=== PATIENT | male | born 1930 | race Caucasian/White ===

== ENCOUNTER 2017-03-27 10:00 | Inpatient (IN) | payer MEDICARE, BC ==
[~2017-03-27] VITALS: Ht 170.2 cm; Wt 94.8 kg
[2017-03-27] MEDS ORDERED: METO5TAB7 PO (10:19)
[2017-03-27] MEDS ORDERED: CA/D1TAB7 PO (10:19)
[2017-03-27] MEDS ORDERED: AMLO10TA4 PO (10:19)
[2017-03-27] MEDS ORDERED: METO25TA6 PO (10:19)
[2017-03-27] MEDS ORDERED: RIVA20TA PO (10:19)
[2017-03-27] MEDS ORDERED: FLUT1DIS28 IH (10:19)
[2017-03-27] MEDS ORDERED: FURO-152 PO (10:19)
[2017-03-27] MEDS ORDERED: LOSA50TA3 PO (10:19)
[2017-03-27] MEDS ORDERED: MULT-1045 PO (10:20)
[2017-03-27] MEDS ORDERED: SENN8.6T22 PO (10:20)
[2017-03-27] MEDS ORDERED: SODI1TAB3 PO (10:20)
[2017-03-27] MEDS ORDERED: [UNRECOGNIZED DRUG - REMARK] (10:20)
[2017-03-27] MEDS ORDERED: LACT1TAB13 PO (10:20)
[2017-03-27] MEDS ORDERED: LOSA50TA21 PO (10:20)
--- NOTE | 2017-03-27 10:35 | NUR ---
dr duffy at the bedside for eval and exam.
[2017-03-27] MEDS ORDERED: MORPHINE SULFATE 2 MG/1 ML DISP.SYRIN IV ONE (10:45)
[2017-03-27] MEDS ORDERED: ONDANSETRON 4 MG/2 ML VIAL IV ONE (10:45)
[2017-03-27 10:53] LABS: BASOPHILS % (AUTO) 0.5 % (0.0-2.0); EOSINOPHILS # (AUTO) 0.1 K/uL (0.0-0.7); EOSINOPHILS % (AUTO) 1.5 % (0.0-7.0); HEMATOCRIT 43.8 % (40-50); HEMOGLOBIN 14.7 G/DL (14.0-18.0); LYMPHOCYTES # (AUTO) 1.5 K/uL (20.0-40.0); LYMPHOCYTES % (AUTO) 15.2 % (20.5-51.5); MEAN CORPUSCULAR HEMOGLOBIN 30.4 UUG (27.0-31.0); MEAN CORPUSCULAR HGB CONC 34 g/dL (32.0-37.0); MEAN CORPUSCULAR VOLUME 90.4 FL (82.0-92.0); MONOCYTES # (AUTO) 0.6 K/uL (2.0-10.0); MONOCYTES % (AUTO) 6.2 % (0.0-11.0); NEUTROPHILS # (AUTO) 7.4 K/uL (1.8-8.9); NEUTROPHILS % (AUTO) 76.6 % (38.5-71.5); PLATELET COUNT (AUTO) 351 K/UL (150-450); RED BLOOD CELL COUNT(AUTO) 4.84 MIL/UL (4.7-6.1); RED CELL DISTRIBUTION WIDTH 13.9 % (11.5-14.5); WHITE BLOOD COUNT (AUTO) 9.6 K/UL (4.0-11.2)
[2017-03-27] MEDS ORDERED: ONDANSETRON 4 MG/2 ML VIAL ONE (10:57)
[2017-03-27] MEDS ORDERED: MORPHINE SULFATE 2 MG/1 ML DISP.SYRIN ONE (10:57)
[2017-03-27 11:02] LABS: CALCIUM 8.9 mg/dL (8.5-10.1); CREATININE 1.2 mg/dL (0.6-1.3); POTASSIUM 4.4 mmol/L (3.5-5.1)
[2017-03-27 11:08] LABS: ALBUMIN 3.7 g/dL (3.4-5.0); BILIRUBIN,DIRECT 0.2 mg/dL (0.0-0.2); BILIRUBIN,TOTAL 0.7 mg/dL (0.2-1.0); TOTAL PROTEIN, SERUM 7.3 g/dL (6.4-8.2)
--- NOTE | 2017-03-27 11:12 | NUR ---
PER MD ORDER RECCHECK BP ON RT ARM, 164/89.
--- NOTE | 2017-03-27 11:12 | NUR ---
PT SIGNED CONSENT FOR CTA, PLACED IN THE CHART.
[2017-03-27] MEDS ORDERED: IOHEXOL 350 100 ML INFUS..BTL ONE (11:29)
[2017-03-27] MEDS ORDERED: IV NORMAL SALINE 250 ML IV ONE (11:29)
[2017-03-27] MEDS ORDERED: MORPHINE SULFATE 4 MG/1 ML DISP.SYRIN IV ONE (11:30)
[2017-03-27] MEDS ORDERED: MORPHINE SULFATE 4 MG/1 ML DISP.SYRIN ONE (11:35)
[2017-03-27 11:59] LABS: *BILIRUBIN,URIN NEGATIVE (NEGATIVE); *BLOOD, URINE Trace-intact (NEGATIVE); *CLARITY,URINE CLEAR (CLEAR); *COLOR,URINE YELLOW (YELLOW); *KETONES,URINE NEGATIVE (NEGATIVE); *PROTEIN,URINE NEGATIVE (NEGATIVE); *UROBILINOGEN,URINE 0.2 E.U./dl (NORMAL); LEUKOCYTE ESTERASE ,URINE NEGATIVE (NEGATIVE); NITRITE, URINE NEGATIVE (NEGATIVE); UGLUCOSE NEGATIVE (NEGATIVE)
[2017-03-27 12:03] LABS: BACTERIA,URINE NONE SEEN /HPF (NONE SEEN); RBC,URINE 0-3 /HPF (0-3); SQUAMOUS EPITHELIAL CELL,UR FEW /HPF (NONE SEEN); WBC,URINE NONE SEEN /HPF (0-3)
[2017-03-27 16:00] VITALS: BP 152/84
--- NOTE | 2017-03-27 16:40 | NUR ---
PATIENT BROUGHT FROM THE ER BY SYLVIE FORMAN AT 1600. NO S/S OF DISTRESS NOTED, CO OF SEVERE FLANK PAIN. ADMINISTERED PAIN MEDICATION ORDERED FOR COMFORT. NOTIFIED DR. AGUIRRE FOR ADMISSION. ADMISSION ASSESSMENT WERE DONE AND CHARTED. IV INTACT. SIGNIFICANT OTHER AT THE BEDSIDE. CALL LIGHT WITHIN REACH. SAFETY AND COMFORT PROVIDED. WILL CONTINUE MONITORING.
[2017-03-27] MEDS: MORPHINE SULFATE 2 MG/1 ML DISP.SYRIN IV PRN (16:47)
--- NOTE | 2017-03-27 19:30 | NUR ---
nsg: pt received a/o x 4, denies abd pain at this time. no acute distress noted. tele, SR. lungs sound clear to auscultate. cont to monitor.
[2017-03-27 20:00] VITALS: BP 151/85
[2017-03-27] MEDS ORDERED: ALBUTEROL SULFATE 2.5 MG/3 ML NEBU NEB PRN (20:00)
[2017-03-27] MEDS ORDERED: ACETAMINOPHEN 325 MG TABLET PO PRN (20:00)
[2017-03-27] MEDS ORDERED: ONDANSETRON 4 MG/2 ML VIAL IV PRN (20:00)
[2017-03-27] MEDS ORDERED: SENNOSIDES 1 TABLET PO PRN (20:00)
[2017-03-27] MEDS ORDERED: ZOLPIDEM 5 MG TABLET PO PRN (20:00)
[2017-03-27] MEDS ORDERED: DOCUSATE SODIUM 250 MG CAPSULE PO SCH (21:00)
[2017-03-27] MEDS ORDERED: DOCUSATE SODIUM 100 MG CAPSULE PO SCH (21:00)
[2017-03-27] MEDS: AMLODIPINE 5 MG TABLET PO SCH (21:29)
[2017-03-27] MEDS: FLUTICASONE/SALMETEROL 250/50 INHALER IH SCH (21:29)
[2017-03-27] MEDS: METOPROLOL TARTRATE 25 MG TABLET PO SCH (21:29)
[2017-03-27] MEDS ORDERED: RIVAROXABAN 10 MG TABLET ONE (21:45)
[2017-03-28] VITALS: BP 110/56
--- NOTE | 2017-03-28 | NUR ---
nsg: no acute distress noted. tele, SR. cont to monitor.
[2017-03-28 04:00] VITALS: BP 130/70
--- NOTE | 2017-03-28 05:40 | NUR ---
nsg: all needs attended. no acute distress noted. tele, SR. cont to monitor.
[2017-03-28] MEDS: MORPHINE SULFATE 2 MG/1 ML DISP.SYRIN IV PRN (06:46)
[2017-03-28] MEDS ORDERED: PANTOPRAZOLE SODIUM 40 MG TABLET.DR PO SCH (07:00)
[2017-03-28 07:07] LABS: EOSINOPHILS # (AUTO) 0.5 K/uL (0.0-0.7); EOSINOPHILS % (AUTO) 5.1 % (0.0-7.0); HEMATOCRIT 44.3 % (40-50); LYMPHOCYTES # (AUTO) 0.9 K/uL (20.0-40.0); LYMPHOCYTES % (AUTO) 9.2 % (20.5-51.5); MEAN CORPUSCULAR HEMOGLOBIN 30.6 UUG (27.0-31.0); MEAN CORPUSCULAR HGB CONC 34 g/dL (32.0-37.0); MEAN CORPUSCULAR VOLUME 90.5 FL (82.0-92.0); MONOCYTES # (AUTO) 0.8 K/uL (2.0-10.0); NEUTROPHILS # (AUTO) 7.1 K/uL (1.8-8.9); NEUTROPHILS % (AUTO) 76.7 % (38.5-71.5); PLATELET COUNT (AUTO) 354 K/UL (150-450); RED BLOOD CELL COUNT(AUTO) 4.89 MIL/UL (4.7-6.1); RED CELL DISTRIBUTION WIDTH 13.8 % (11.5-14.5); WHITE BLOOD COUNT (AUTO) 9.3 K/UL (4.0-11.2)
[2017-03-28 07:15] LABS: ALBUMIN 3.2 g/dL (3.4-5.0); BILIRUBIN,TOTAL 0.8 mg/dL (0.2-1.0); CALCIUM 8.5 mg/dL (8.5-10.1); CREATININE 1.2 mg/dL (0.6-1.3); MAGNESIUM 1.7 mg/dL (1.8-2.4); PHOSPHOROUS 3.3 mg/dL (2.5-4.9); POTASSIUM 4.6 mmol/L (3.5-5.1); TOTAL PROTEIN, SERUM 6.7 g/dL (6.4-8.2)
[2017-03-28 07:17] LABS: THYROID STIMULATING HORMONE 2.883 mIU/mL (0.358-3.740)
[2017-03-28] MEDS: FLUTICASONE/SALMETEROL 250/50 INHALER IH SCH (08:05)
[2017-03-28] MEDS: METOPROLOL TARTRATE 25 MG TABLET PO SCH (08:05)
[2017-03-28] MEDS: AMLODIPINE 5 MG TABLET PO SCH (08:06)
[2017-03-28] MEDS ORDERED: MULTIVITAMINS,THERAPEUTIC TABLET PO SCH (09:00)
[2017-03-28] MEDS ORDERED: Medication Not On Formulary EA (Multivitamin (Multi-Vitamin Daily) 1 EACH) PO SCH (09:00)
[2017-03-28] MEDS ORDERED: MAGNESIUM OXIDE 400 MG TABLET PO ONE (09:15)
[2017-03-28 11:57] VITALS: BP 119/59
--- NOTE | 2017-03-28 14:04 | NUR ---
d/c orders received noted and carried out.d/c instructions and educations given to the pt.d/c heplock per md orders.pt left the facility via private car in stable condition.
[2017-03-28] MEDS ORDERED: RIVAROXABAN 10 MG TABLET PO SCH (18:00)
== END 2017-03-28 14:10 | disposition home or self-care (01) | DRG 74 ==
LOC: ER 10:00 → TELE 15:12 → MED 03-28 08:57
PROVIDERS: ADMIT Internal Medicine; ATTEND Internal Medicine
DX: M54.10 Radiculopathy, site unspecified (principal); I10 Essential (primary) hypertension; J44.9 Chronic obstructive pulmonary disease, unspecified; N40.0 Benign prostatic hyperplasia without lower urinary tract symptoms; Z86.718 Personal history of other venous thrombosis and embolism; E66.9 Obesity, unspecified; I44.0 Atrioventricular block, first degree; J84.10 Pulmonary fibrosis, unspecified; K59.00 Constipation, unspecified; Z87.891 Personal history of nicotine dependence; Z96.643 Presence of artificial hip joint, bilateral; K76.89 Other specified diseases of liver; T40.2X5A Adverse effect of other opioids, initial encounter; Y92.009 Unspecified place in unspecified non-institutional (private) residence as the place of occurrence of the external cause; Z68.32 Body mass index [BMI] 32.0-32.9, adult; Z79.01 Long term (current) use of anticoagulants; E78.5 Hyperlipidemia, unspecified; M94.0 Chondrocostal junction syndrome [Tietze]
CPT/HCPCS: 36415; 70030-TC; 71010; 71275; 83690; 83735; 84100; 84443; 85025; 85730; 93005; 97001; A4663; J2270; J2405; J7050; Q9967